=== PATIENT | male | born 1955 | race Asian ===

== ENCOUNTER 2019-02-21 18:15 | Emergency (ER) | payer OTHER ==
[~2019-02-21] VITALS: Ht 172.7 cm; Wt 136.5 kg
[2019-02-21 18:15] VITALS: BP 141/57; TEMP 97.7
[~2019-02-21 18:15] MED LIST: AMLO2.5T PO; ASEN5SUB2 SL; ATIVAN2 M1 PO; BENZTROPINE0.5 MG PO; CLON0.5T36 PO; COZAAR100 MG PO; DIGOX250 MCG PO; DIGOXIN0.25 MG PO; DIVA500T2 PO; DIVALPROEX500 MG PO; FOLI1TAB26 PO; HALO50IN4 IM; HALO5INJ3 IM; HALO5TAB10 PO; HUMALOG KW100 UNIT/M SC; HUMALOG KWI100 MG/ML SC; INSU100P SC; KP FOLIC ACID1 MG PO; LANTUS100 MG/ML SC; LEVEMIR FL100 UNIT/M SC; LEVO0.1T6 PO; LIPITOR10 MG PO; LIPITOR20 MG PO; LORA0.5T17 PO; LORA2INJ21 IM; MAGNSUS68 PO; MEDR10TA4 PO; METAMUCIL0.52 GM OR; OMEPRAZOLE20 M2 OR; PANTOPRAZOLE 40MG TA PO; PROVERA10 MG OR; PROVERA10 MG PO; PROZAC10 MG PO; RISP0.25 PO; SEROQUEL25 MG OR; ZIPR20CA PO; ZIPR20IN IM; ZIPR80CA PO
[2019-02-21] MEDS ORDERED: RISP0.25 PO (20:16)
[2019-02-21] MEDS ORDERED: FLUOXETINE20 M1 PO (20:18)
[2019-02-21] MEDS ORDERED: TYLENOL325 MG PO (20:20)
[2019-02-21] MEDS ORDERED: MYLANT3 PO (20:23)
[2019-02-21] MEDS ORDERED: FSBS (20:25)
[2019-02-23 14:20] LABS: PLATELET COUNT 181 K/uL (142-355)
[2019-02-23 14:40] LABS: POTASSIUM 5.1 mmol/L (3.6-5.2)
== END 2019-02-21 19:15 | disposition still patient (30) ==
LOC: ED 18:27
PROVIDERS: Emergency Medicine Emergency Medical Services
DX: F20.0 Paranoid schizophrenia (principal); Z04.6 Encounter for general psychiatric examination, requested by authority
CPT/HCPCS: 36415; 80053; 81000; 85027; 93005; 99285